=== PATIENT | female | born 1980 | race African-American/Black ===

== ENCOUNTER 2023-02-12 16:08 | Emergency (ER) | payer OTHER ==
[~2023-02-12] VITALS: Ht 154.9 cm; Wt 78.0 kg
[~2023-02-12 16:08] MED LIST: LEVSIN/SL0.125 MG PO; LEVSIN/SL0.125 MG SL; PEPCID40 MG PO; ZANTAC150 MG PO
[2023-02-12] MEDS ORDERED: PAXLOVID 300-11 EACH PO (19:05)
== END 2023-02-12 20:13 | disposition home or self-care (01) ==
LOC: ER 16:08
DX: U07.1 COVID-19 (principal); R50.9 Fever, unspecified; R53.81 Other malaise

== ENCOUNTER 2023-10-10 08:28 | Outpatient (CLI) | payer OTHER ==
[~2023-10-10 08:28] MED LIST changes: +PAXLOVID 300-11 EACH PO
== END 2023-10-10 08:38 | disposition home or self-care (01) ==
LOC: MAMO-SONO 08:28
PROVIDERS: ATTEND Specialist
DX: N92.1 Excessive and frequent menstruation with irregular cycle (principal); Z12.31 Encounter for screening mammogram for malignant neoplasm of breast; N63.0 Unspecified lump in unspecified breast

== ENCOUNTER 2023-10-20 07:41 | Outpatient (CLI) | payer OTHER | END 2023-10-20 07:52 | disposition home or self-care (01) | LOC: SONOGRAMA 07:41 | DX: R10.13 Epigastric pain (principal); R10.11 Right upper quadrant pain ==

== ENCOUNTER 2024-06-04 09:15 | Outpatient (CLI) | payer OTHER | END 2024-06-04 09:26 | disposition home or self-care (01) | LOC: SONOGRAMA 09:15 | PROVIDERS: ATTEND Physical Medicine & Rehabilitation Sports Medicine | DX: K80.80 Other cholelithiasis without obstruction (principal); R10.13 Epigastric pain ==